=== PATIENT | female | born 1980 | race American Indian/Alaskan Native ===

== ENCOUNTER 2017-01-24 06:13 | Day surgery (SDC) | payer BC, MEDICAID ==
--- NOTE | 2017-01-23 15:43 | History and Physical Report ---
History of Present Illness Date of examination: 01/23/17 Date of admission: 01/24/17 Chief complaint: Right hand pain, numbness age group. History of present illness: 36-year-old, right-handed with right wrist pain, worse at night, numbness with weak senior systems engineer, pinch. Treat symptomatically no improvement, EMG confirmed carpal tunnel syndrome. Being admitted for median nerve decompression at the wrist Past History Past Medical History: COPD, diabetes Medications and Allergies Allergies Allergy/AdvReac Type Severity Reaction Status Date / Time No Known Allergies Allergy Verified 10/12/14 09:34 Home Medications Medication Instructions Recorded Confirmed Last Taken Type Atazanavir Sulfate [Reyataz] 300 mg PO QDAY 10/12/14 01/19/17 11/12/15 History Fluconazole [Fluconazole] 150 mg PO PRN PRN 10/12/14 01/19/17 11/12/15 History Insulin Aspart Prot/Aspart(Nf) 50 units SC BID 10/12/14 01/19/17 11/12/15 History [NovoLOG Mix 70/30 VIAL] Ritonavir [Norvir] 100 mg PO QDAY 10/12/14 01/19/17 11/12/15 History Atazanavir [Reyataz] 300 mg PO DAILY capsule 11/17/15 01/19/17 Unknown Rx Dolutegravir (Nf) 50 mg PO QDAY 11/17/15 01/19/17 Unknown Rx HYDROcodone/APAP 5-325 [[place] 1 each PO Q4H PRN #60 tablet 11/17/15 01/19/17 Unknown Rx 5-325 mg TAB] Levofloxacin [Levaquin] 750 mg PO QDAY #7 tablet 11/17/15 01/19/17 Unknown Rx Ritonavir [Norvir] 100 mg PO QDAY tab 11/17/15 01/19/17 Unknown Rx Review of Systems All systems: negative (the digit was view. There is) Exam - Constitutional General appearance: Present: no acute distress, well-nourished - EENT Eyes: Present: PERRL ENT: hearing intact, clear oral mucosa - Neck Neck: Present: supple, normal ROM - Respiratory Respiratory effort: normal Respiratory: bilateral: CTA - Cardiovascular Heart Sounds: Present: S1 & S2. Absent: rub, click - Extremities Extremities: pulses symmetrical, No edema, abnormal (Right wrist with painful limitation of movement, numbness along the median nerve distribution with positive Phalen's test and Tinel's sign at the carpal tunnel. Tinel sign negative at the bands condyle, anterior interosseous nerve. The complaints, senior systems engineer; radial pulse palpated within normal limits, and test negative.) Peripheral Pulses: within normal limits - Abdominal General gastrointestinal: Present: soft, non-tender, non-distended, normal bowel sounds Female genitourinary: Present: normal - Integumentary Integumentary: Present: clear, warm, dry - Musculoskeletal Musculoskeletal: gait normal, strength equal bilaterally - Psychiatric Psychiatric: appropriate mood/affect, intact judgment & insight - Neurologic Neurologic: CNII-XII intact, moves all extremities Assessment and Plan - Patient Problems (1) Carpal tunnel syndrome, right Status: Chronic Plan to address problem: carpal tunnel release, median nerve decompression.
[~2017-01-24 06:13] MED LIST: ANCEF/STERILE WATER 2 GM/20 ML 2 GM/20 ML SYRINGE IV NR
[2017-01-24] MEDS ORDERED: SUBLIMAZE ONE (07:28)
[2017-01-24] MEDS ORDERED: DIPRIVAN 10 MG/ML IV ONE (07:28)
[2017-01-24] MEDS ORDERED: ZOFRAN ONE (07:28)
[2017-01-24] MEDS ORDERED: XYLOCAINE MPF 2% ONE (07:28)
--- NOTE | 2017-01-24 07:59 | Anesthesia Day of Surgery ---
Anesthesia Day of Surgery - Day of Surgery Patient Examined: Yes Patient H&P Reviewed: Yes Patient is NPO: Yes
--- NOTE | 2017-01-24 07:59 | Anesthesia Consultation ---
Anesthesia Consult and Med Hx Date of service: 01/24/17 - Airway Anesthetic Teeth Evaluation: Good ROM Head & Neck: Adequate Mental/Hyoid Distance: Adequate Mallampati Class: Class II Intubation Access Assessment: Probably Good - Pulmonary Exam CTA: Yes - Cardiac Exam Cardiac Exam: RRR - Pre-Operative Health Status ASA Pre-Surgery Classification: ASA2 Proposed Anesthetic Plan: General - Cardiovascular System Hx Hypertension: Yes Hx Cardia Arrhythmia: Yes (recent SVT treated; in hospital ST; pt had right upper quadrant pain ) Hx Pacemaker: ( ) - Central Nervous System Hx Psychiatric Problems: No - Gastrointestinal Hx Gastroesophageal Reflux Disease: (biliary dyskinesia) - Endocrine Hx Insulin Dependent Diabetes: Yes - Other Systems Hx Alcohol Use: Yes (socially) Hx Cancer: No - Additional Comments Anesthesia Medical History Comments: DM
[2017-01-24] MEDS ORDERED: PEPCID PO NR (08:00)
[2017-01-24] MEDS ORDERED: NACL 0.9% 1000 ML 1,000 ML IV SCH (08:00)
[2017-01-24] MEDS ORDERED: REGLAN PO NR (08:00)
[2017-01-24] MEDS ORDERED: DILAUDID IV PRN (08:28)
[2017-01-24] MEDS ORDERED: MARCAINE 0.5% INFILTRATI ONE (09:00)
[2017-01-24] MEDS ORDERED: ZOFRAN IV PRN (09:00)
[2017-01-24] MEDS ORDERED: VERSED IV NR (09:00)
--- NOTE | 2017-01-24 09:12 | Discharge Summary ---
Providers - Providers Date of discharge: 01/24/17 Attending physician: ELENI RAMAN Primary care physician: MANAGER OF [employer]CRUITING Hospitalization Reason for admission: Right Carpal Tunnel Syndrome Condition: Stable Pertinent studies: EMG = CTS Procedures: Right carpal Tunnel Decompression Hospital course: uneventful Disposition: DC-01 TO HOME OR SELFCARE - Discharge Diagnoses (1) Carpal tunnel syndrome, right Status: Chronic Core Measure Documentation - Palliative Care Palliative Care/ Comfort Measures: Not Applicable - Core Measures Any of the following diagnoses?: none Exam - Constitutional Vitals: Temp Pulse Resp BP Pulse Ox 98.7 F 76 16 151/89 97 01/24/17 08:40 01/24/17 08:40 01/24/17 08:40 01/24/17 08:40 01/24/17 08:40 Plan Activity: no driving until cleared by PCP Diet: regular Wound: per your surgeon's advice Special Instructions: other (elecetion/ sling) Follow up with: PRIMARY MD NADIA [Primary Care Provider] - 7 Days ELENI RAMAN MD [Staff Physician] - 7 Days
--- NOTE | 2017-01-24 09:32 | Post Anesthesia Evaluation ---
- Post Anesthesia Evaluation Patient Participated: Yes Airway Patent: Yes Stable Respiratory Function: Yes Nausea/Vomiting: No Temp > 96.8F: Yes Pain Manageable: Yes Adequeate Hydration: Yes Anesthesia Complications: No Block Receding Appropriately: Not Applicable Patient on Ventilator: No
[2017-01-24] MEDS ORDERED: TORADOL IV PRN (09:33)
[2017-01-24] MEDS ORDERED: ANCEF/STERILE WATER 2 GM/20 ML 2 GM/20 ML SYRINGE IV NR (10:00)
[2017-01-24] MEDS ORDERED: MARCAINE 0.5% 30 ML INFILTRATI ONE (10:22)
--- NOTE | 2017-01-24 10:33 | Operative Report ---
PREOPERATIVE DIAGNOSIS: Right carpal tunnel syndrome. POSTOPERATIVE DIAGNOSIS: Right carpal tunnel syndrome. OPERATIVE PROCEDURE: Right carpal tunnel decompression. SURGEON: Jefe Tovar MD AFTER SCHOOL PROGRAM TEACHER: Tete Goldman CSA. ANESTHESIA: General. DESCRIPTION OF PROCEDURE: The patient was taken to the surgery suite, satisfactory analgesia obtained with general anesthetic. The right upper limb prepped with ChloraPrep, satisfactorily draped. The correct patient, procedure sites were confirmed. After exsanguinating, tourniquet inflated to 250 mmHg pressure. Incision was made starting at the mid palmar point extending to the transverse crease of the wrist. Incision positioned along the ulnar side of the thenar crease. Incision was deepened to the fibrofatty layer. Distal border of the transverse carpal ligament was identified and a [place] elevator was positioned to the carpal tunnel to protect the contents. The thickened hypertrophic transverse carpal ligament was then transected thereby decompressing the median nerve. The median nerve appeared severely constricted at the level of the carpal tunnel with post noted dilatation congestion. Decompression appeared adequate. No space occupying lesions are noted. Wound was then closed with 4-0 nylon sutures. The barry-incisional area infiltrated with 4 mL of 0.5% Marcaine plain for postop pain control. Sterile dressings were applied. Forearm was then placed in a forearm brace and the patient was transferred to recovery room to be discharged when discharge criteria are met. HOMEGOING INSTRUCTIONS: Elevation, localized packs, analgesics. Range of motion of MCP and IP joints and follow up at the office in 7 to 10 days. At the completion of procedure, counts were accurate. Total tourniquet time approximately 10 minutes. JOB# [id number] RVN/JONAH
[2017-01-24 12:13] VITALS: BP 120/70
== END 2017-01-24 11:48 | disposition home or self-care (01) ==
LOC: OR 06:13
PROVIDERS: ATTEND Orthopaedic Surgery
DX: G56.01 Carpal tunnel syndrome, right upper limb (principal); I10 Essential (primary) hypertension; J44.9 Chronic obstructive pulmonary disease, unspecified; E11.9 Type 2 diabetes mellitus without complications; Z79.4 Long term (current) use of insulin; Z79.899 Other long term (current) drug therapy; Z72.89 Other problems related to lifestyle
CPT/HCPCS: 64721; 82962; J2250; J2405; J2704; J3010; J7030